=== PATIENT | male | born 1955 | race Caucasian/White ===

== ENCOUNTER 2018-10-17 05:19 | Inpatient (IN) | payer OTHER ==
[~2018-10-17] VITALS: Ht 200.7 cm; Wt 127.3 kg
[~2018-10-17 05:19] MED LIST: ATOR40TA28 PO; CeFAZolin 2 GM/DEXTROSE 50 ML IV ONE; LISI-661 PO; RINGERS SOLUTION,LACTATED 1,000 ML IV ONE
[2018-10-17] MEDS ORDERED: SODIUM CL IRRIG SOLN BAG 3,000 ML IRRIG ONE (06:23)
[2018-10-17] MEDS ORDERED: BUPIVACAINE HCL/PF 0.25% 30 ML VIAL ONE ×2 (06:23→07:12)
[2018-10-17] MEDS ORDERED: VANCOMYCIN HCL 1 GM/VIAL ONE (06:23)
[2018-10-17] MEDS ORDERED: MUPIROCIN CALCIUM 2% 22 GM OINTMENT ONE (06:23)
[2018-10-17 06:30] LABS: BASOPHILS % (AUTO) 0.3 % (0.0-2.0); EOSINOPHILS % (AUTO) 1.9 % (1.0-6.0); HEMATOCRIT 43.9 % (41-53); HEMOGLOBIN 14.8 g/dL (13.5-17.5); LYMPHOCYTES # (AUTO) 1.8 K/uL (1.0-4.8); LYMPHOCYTES % (AUTO) 25.2 % (22.0-44.0); MEAN CORPUSCULAR HEMOGLOBIN 30.3 pg (26.0-34.0); MEAN CORPUSCULAR HGB CONC 33.7 G/dL (31.0-37.0); MEAN CORPUSCULAR VOLUME 90 fL (80-100); MONOCYTES # (AUTO) 0.7 K/uL (0.1-1.0); MONOCYTES % (AUTO) 9.8 % (2.0-9.0); NEUTROPHILS # (AUTO) 4.4 K/uL (1.8-7.7); NEUTROPHILS % (AUTO) 62.8 % (40.0-70.0); PLATELET COUNT (AUTO) 237 K/uL (150-450); RED BLOOD CELL COUNT(AUTO) 4.89 MIL/uL (4.50-5.90); RED CELL DISTRIBUTION WIDTH 13.9 % (11.5-14.5)
[2018-10-17 06:34] LABS: ANION GAP 9 mmol/L (8-16); CALCIUM, TOTAL 9.3 mg/dL (8.8-10.5); CARBON DIOXIDE 28 mmol/L (22-29); CHLORIDE 104 mmol/L (98-107); CREATININE 1.13 mg/dL (0.60-1.30); GLOMERULAR FILTR. RATE CALC > 60 mL/min (>60); GLUCOSE,RANDOM 92 mg/dL (70-110); POTASSIUM 4.3 mmol/L (3.5-5.1); SODIUM SERUM 141 mmol/L (136-145); UREA NITROGEN, BLOOD 12 mg/dL (7-18)
[2018-10-17 06:36] LABS: PROTHROMBIN TIME 10.6 SEC (9.4-11.6)
[2018-10-17 06:41] LABS: ALANINE AMINOTRANSFERASE 37 U/L (12-78); ALBUMIN 3.9 g/dL (3.4-5.0); ALKALINE PHOSPHATASE 110 U/L (46-116); ASPARTATE AMINOTRANSFERASE 18 U/L (15-37); BILIRUBIN,TOTAL 0.6 mg/dL (0.1-1.0); TOTAL PROTEIN, SERUM 7.3 g/dL (6.4-8.2)
[2018-10-17] MEDS ORDERED: RINGERS SOLUTION,LACTATED 1,000 ML IV ONE ×3 (06:49→08:28)
[2018-10-17] MEDS ORDERED: CeFAZolin 2 GM/DEXTROSE 50 ML IV ONE (07:00)
[2018-10-17] MEDS ORDERED: LIDOCAINE/PF 1% 5 ML VIAL ID ONE (07:00)
[2018-10-17] MEDS ORDERED: ROPIVACAINE HCL/PF 0.2% 100 ML ED ONE (07:13)
[2018-10-17] MEDS ORDERED: FentaNYL CITRATE-PF 100 MCG/2 ML VIAL IVP PRN (07:45)
[2018-10-17] MEDS ORDERED: BUPIVACAINE LIPOSOME/PF 1.3%-13.3MG/ML SUSPENSION 20 ML VIAL INJ ONE (07:45)
[2018-10-17] MEDS ORDERED: MEPERIDINE-PF 25 MG/ML VIAL IVP PRN (07:45)
[2018-10-17] MEDS ORDERED: HYDROmorphone 2 MG/ML SYRINGE IVP PRN (07:45)
[2018-10-17] MEDS ORDERED: OXYGEN THERAPY IH SCH (08:00)
[2018-10-17] MEDS ORDERED: MICROFIBRILLAR COLLAGEN 1 GM PACKAGE TP ONE (08:01)
[2018-10-17] MEDS ORDERED: ONDANSETRON HCL 4 MG/2 ML VIAL IVP PRN (09:15)
[2018-10-17] MEDS: HYDROmorphone 2 MG/ML SYRINGE IVP PRN ×4 (10:43→20:26)
[2018-10-17 11:05] VITALS: BP 148/91
[2018-10-17] MEDS: LISINOPRIL 10 MG TABLET PO SCH (13:23)
[2018-10-17] MEDS: ATORVASTATIN CALCIUM 40 MG TABLET PO SCH (13:23)
[2018-10-17] MEDS ORDERED: CeFAZolin 2 GM/DEXTROSE 50 ML IV SCH (15:00)
[2018-10-17 15:25] VITALS: BP 138/84
[2018-10-17] MEDS: CYCLOBENZAPRINE HCL 10 MG TABLET PO SCH ×2 (16:12→19:41)
[2018-10-17] MEDS: CeFAZolin 2 GM/DEXTROSE 50 ML IV SCH ×2 (16:19→23:34)
[2018-10-17 19:25] VITALS: BP 123/79
[2018-10-17] MEDS: OxyCODONE HCL/ACETAMINOPHEN 5-325 MG TABLET PO PRN (19:42)
[2018-10-17 23:40] VITALS: BP 129/68
[2018-10-18 03:55] VITALS: BP 118/63
[2018-10-18] MEDS: HYDROmorphone 2 MG/ML SYRINGE IVP PRN ×3 (04:05→10:05)
[2018-10-18] MEDS ORDERED: 0.9% SODIUM CHLORIDE 10 ML VIAL IVP ONE (05:33)
[2018-10-18] MEDS ORDERED: FentaNYL CITRATE-PF 100 MCG/2 ML VIAL IVP ONE (05:33)
[2018-10-18] MEDS ORDERED: GLYCOPYRROLATE 0.2 MG/ML VIAL IM ONE (05:33)
[2018-10-18] MEDS ORDERED: MIDAZOLAM HCL 2 MG/2 ML VIAL IVP ONE (05:33)
[2018-10-18] MEDS ORDERED: NEOSTIGMINE METHYLSULFATE 1 MG/ML 10 ML VIAL IVP ONE (05:33)
[2018-10-18] MEDS ORDERED: ESMOLOL HCL 10 MG/ML 10 ML VIAL IVP ONE (05:33)
[2018-10-18] MEDS ORDERED: PROPOFOL 1% 20 ML VIAL IVP ONE (05:33)
[2018-10-18] MEDS ORDERED: ONDANSETRON HCL 4 MG/2 ML VIAL IVP ONE (05:33)
[2018-10-18] MEDS ORDERED: METOCLOPRAMIDE HCL 5 MG/ML 2 ML VIAL IVP ONE (05:33)
[2018-10-18] MEDS ORDERED: LIDOCAINE/PF 2% 5 ML VIAL IM ONE (05:33)
[2018-10-18] MEDS ORDERED: DEXAMETHASONE SOD PHOS 4 MG/ML VIAL IVP ONE (05:33)
[2018-10-18] MEDS: ENOXAPARIN SODIUM 30 MG/0.3 ML PF SYRINGE SQ SCH ×2 (06:17→09:52)
[2018-10-18 06:26] LABS: BASOPHILS % (AUTO) 0.1 % (0.0-2.0); EOSINOPHILS % (AUTO) 0.2 % (1.0-6.0); HEMATOCRIT 42.8 % (41-53); HEMOGLOBIN 14.3 g/dL (13.5-17.5); LYMPHOCYTES # (AUTO) 1.5 K/uL (1.0-4.8); LYMPHOCYTES % (AUTO) 12.9 % (22.0-44.0); MEAN CORPUSCULAR HEMOGLOBIN 30.2 pg (26.0-34.0); MEAN CORPUSCULAR HGB CONC 33.5 G/dL (31.0-37.0); MEAN CORPUSCULAR VOLUME 90 fL (80-100); MONOCYTES # (AUTO) 1.6 K/uL (0.1-1.0); MONOCYTES % (AUTO) 13.8 % (2.0-9.0); NEUTROPHILS # (AUTO) 8.2 K/uL (1.8-7.7); PLATELET COUNT (AUTO) 248 K/uL (150-450); RED BLOOD CELL COUNT(AUTO) 4.74 MIL/uL (4.50-5.90); RED CELL DISTRIBUTION WIDTH 14.1 % (11.5-14.5)
[2018-10-18 06:42] LABS: CREATININE 1.39 mg/dL (0.60-1.30); POTASSIUM 4.1 mmol/L (3.5-5.1)
[2018-10-18 07:37] VITALS: BP 103/63
[2018-10-18] MEDS: LISINOPRIL 10 MG TABLET PO SCH ×2 (09:00→09:51)
[2018-10-18] MEDS: CYCLOBENZAPRINE HCL 10 MG TABLET PO SCH (09:51)
[2018-10-18] MEDS: ATORVASTATIN CALCIUM 40 MG TABLET PO SCH (09:51)
[2018-10-18] MEDS ORDERED: OXYC-38 PO (12:03)
[2018-10-18] MEDS ORDERED: ENOX60DI8 SQ (12:03)
[2018-10-18 12:20] VITALS: BP 121/60
[2018-10-18] MEDS: OxyCODONE HCL/ACETAMINOPHEN 5-325 MG TABLET PO PRN (12:43)
== END 2018-10-18 14:20 | disposition home health service (06) | DRG 476 ==
LOC: SURGERY 05:19 → 4E 07:33
PROVIDERS: ADMIT Orthopaedic Surgery; ATTEND Orthopaedic Surgery
PROC: 0KNT0ZZ Release Left Lower Leg Muscle, Open Approach (ICD-10-PCS; 2018-10-17)
PROC: 0KNT0ZZ Release Left Lower Leg Muscle, Open Approach (ICD-10-PCS; 2018-10-17)
PROC: 0KNT0ZZ Release Left Lower Leg Muscle, Open Approach (ICD-10-PCS; 2018-10-17)
PROC: 0Y6J0Z1 Detachment at Left Lower Leg, High, Open Approach (ICD-10-PCS; principal; 2018-10-17 07:00)
DX: M14.672 Charcot's joint, left ankle and foot (principal); M21.962 Unspecified acquired deformity of left lower leg; I10 Essential (primary) hypertension; E78.5 Hyperlipidemia, unspecified
CPT/HCPCS: 87081; 88307; 88312; 93005; 97162; C9290; G0238; G0378; J0690; J1100; J1170; J1650; J2250; J2405; J2704; J2765; J2795; J3010; J3370; J3490; J7120